=== PATIENT | male | born 1990 | race Caucasian/White ===

== ENCOUNTER 2021-02-13 06:32 | Day surgery (SDC) | payer MEDICARE, OTHER ==
[2021-02-09 15:08] LABS: COVID AG,FIA SOURCE NASOPHARYNGEAL
[~2021-02-13] VITALS: Ht 154.9 cm; Wt 61.8 kg
[~2021-02-13 06:32] MED LIST: ACETAMINOPHEN 325 MG TABLET PO PRN; ALBU6.7H9 IH; CETI1SOL83 PO; MELA5TAB3 PO; MOXIFLOXACIN HCL 0.5% 3 ML OPHTHALMIC SOLUTION ONE; NACL5OS OD; PRED5DRO17 OD; RINGERS SOLUTION,LACTATED 500 ML IV ONE; TETRACAINE HCL/PF 0.5% 4 ML OPHTHALMIC SOLUTION ONE
[2021-02-13] MEDS ORDERED: BUPIVACAINE HCL/PF 0.75% 10 ML VIAL SQ ONE (06:33)
[2021-02-13] MEDS ORDERED: HYALURONIDASE, HUMAN RECOMB. 150 UNITS/ML SQ ONE (06:33)
[2021-02-13] MEDS ORDERED: EPINEPHrine 1:1,000 [1 MG/ML] AMP IM ONE (06:33)
[2021-02-13] MEDS ORDERED: SUCCINYLCHOLINE CHLORIDE 20 MG/ML 10 ML VIAL IVP ONE (06:33)
[2021-02-13] MEDS ORDERED: TETRACAINE HCL/PF 0.5% 4 ML OPHTHALMIC SOLUTION OU ONE (06:33)
[2021-02-13] MEDS ORDERED: EPHEDrine SULFATE 50 MG/ML VIAL IM ONE (06:33)
[2021-02-13] MEDS ORDERED: LIDOCAINE/PF 1% 2 ML VIAL IV ONE (06:33)
[2021-02-13] MEDS ORDERED: MIDAZOLAM HCL 2 MG/2 ML VIAL IVP ONE (06:33)
[2021-02-13] MEDS ORDERED: ONDANSETRON HCL 4 MG/2 ML VIAL IVP ONE (06:33)
[2021-02-13] MEDS ORDERED: GENTAMICIN SULFATE 40 MG/ML 2 ML VIAL IM ONE (06:33)
[2021-02-13] MEDS ORDERED: DEXAMETHASONE SOD PHOS 4 MG/ML VIAL IVP ONE (06:33)
[2021-02-13] MEDS ORDERED: FentaNYL CITRATE PF 100 MCG/2 ML VIAL IVP ONE (06:33)
[2021-02-13] MEDS ORDERED: PROPOFOL 1% 20 ML VIAL IVP ONE (06:33)
[2021-02-13] MEDS ORDERED: NEOMYCIN/POLYMYXIN B/DEXAMETH 3.5 GM OPHTHALMIC OINTMENT OU ONE (06:33)
[2021-02-13] MEDS ORDERED: PrednisoLONE ACETATE 1% 5 ML OPHTHALMIC SUSPENSION OU ONE (06:33)
[2021-02-13] MEDS: TETRACAINE HCL/PF 0.5% 4 ML OPHTHALMIC SOLUTION OD SCH ×3 (07:00→07:14)
[2021-02-13] MEDS: MOXIFLOXACIN HCL 0.5% 3 ML OPHTHALMIC SOLUTION OD SCH ×3 (07:00→07:14)
[2021-02-13] MEDS: PILOCARPINE HCL 1% 15 ML OPHTHALMIC SOLUTION OD SCH ×3 (07:00→07:14)
[2021-02-13] MEDS ORDERED: FentaNYL CITRATE PF 100 MCG/2 ML VIAL IVP PRN (08:45)
[2021-02-13] MEDS ORDERED: MEPERIDINE-PF 25 MG/ML VIAL IVP PRN (08:45)
[2021-02-13] MEDS ORDERED: HYDROmorphone 2 MG/ML VIAL IVP PRN (08:45)
== END 2021-02-13 10:45 | disposition home or self-care (01) ==
LOC: SURGERY 06:32
PROVIDERS: ATTEND Ophthalmology
DX: H17.89 Other corneal scars and opacities (principal); H54.7 Unspecified visual loss; J45.909 Unspecified asthma, uncomplicated; Z88.8 Allergy status to other drugs, medicaments and biological substances; Z91.013 Allergy to seafood; Q90.9 Down syndrome, unspecified; Z79.899 Other long term (current) drug therapy; Z98.890 Other specified postprocedural states; Z88.0 Allergy status to penicillin; Z91.040 Latex allergy status
CPT/HCPCS: 65730; 87070; 87101; 87205; 87426; C9803; J0171; J0330; J1100; J1580; J2250; J2405; J2704; J3010; J3473; J3490 ×3; J7120; V2785; Z7610